=== PATIENT | female | born 1970 | race Hispanic/Latino ===

== ENCOUNTER 2020-05-03 09:20 | Emergency (ER) | payer BC ==
[~2020-05-03] VITALS: Ht 157.5 cm; Wt 122.5 kg
[2020-05-03] MEDS ORDERED: IBUPROFEN 600 MG TAB PO STA (09:43)
--- NOTE | 2020-05-03 09:43 | Emergency Department Note ---
History of Present Illnes History of Present Illness Chief Complaint: left achilles pain History of Present Illness This is a 50 year old female. was doing well prior to this. pt work up with this pain. 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: No Onset (how long ago): day(s) (2) Location: see above Quality: sharp Radiation: Reports non-radiation Severity: severe Onset quality: sudden Duration (how long): day(s) (2) Timing of current episode: constant Progression: worsening Chronicity: new Context: Denies recent illness, Denies recent surgery, Denies recent immobilization, Denies recent travel, Denies trauma/injury, Denies new medications, Denies hx of DVT/PE, Denies non-compliance w/ medications Relieving factors: rest Exacerbating factors: movement Associated symptoms: Reports denies other symptoms Treatments prior to arrival: none Past Medical/Family History Physician Review I have reviewed the patient's past medical and family history. Any updates have been documented here. Past Medical History Recent Fever: No Clinical Suspicion of Infectio: No New/Unexplained Change in Ment: No Past Medical History: Hypertension, Diabetes, MD, TIA, Cancer Other Medical History: KIDNEY CANCER-RIGHT Past Surgical History: Cholecysctectomy, Hysterectomy, Hernia Repair Other Surgery: RIGHT NEPHRECTOMY Social History Smoking Cessation: Never Smoker Alcohol Use: None Any Illegal Drug Use: No Family History Family history of heart diseas: No Other Any Pre-Existing Lines (PICC,: No Review of Systems Review of Systems Constitutional: Reports no symptoms EENTM: Reports no symptoms Cardiovascular: Reports no symptoms Respiratory: Reports no symptoms Gastrointestinal: Reports no symptoms Genitourinary: Reports no symptoms Musculoskeletal: Reports as per HPI Integumentary: Reports no symptoms Neurological: Reports no symptoms Psychological: Reports no symptoms Endocrine: Reports no symptoms Hematological/Lymphatic: Reports no symptoms Review of other systems: All other systems negative Physical Exam Related Data Triage Vital Signs Vital Signs Date Time Temp Pulse Resp B/P (MAP) Pulse Ox O2 Delivery O2 Flow Rate FiO2 05/03/20 09:34 98.8 93 16 205/83 98 Room Air Vital signs reviewed: Yes Physical Exam CONSTITUTIONAL Constitutional: Present well-developed, Present well-nourished HENT HENT: Present normocephalic, Present atraumatic, Present oropharynx clear/moist, Present nose normal HENT L/R: Present left ext ear normal, Present right ext ear normal EYES Eyes: Reports PERRL, Reports conjunctivae normal NECK Neck: Present ROM normal PULMONARY Pulmonary: Present effort normal, Present breath sounds normal CARDIOVASCULAR Cardiovascular: Present regular rhythm, Present heart sounds normal, Present capillary refill normal, Present normal rate GASTROINTESTINAL Abdominal: Present soft, Present nontender, Present bowel sounds normal GENITOURINARY Genitourinary: Present exam deferred SKIN Skin: Present warm, Present dry MUSCULOSKELETAL Musculoskeletal: Present tenderness (left achilles tenderness/ +swelling/ decrease farom/ +nvi) NEUROLOGICAL Neurological: Present alert, Present oriented x 3, Present no gross motor or sensory deficits PSYCHOLOGICAL Psychological: Present mood/affect normal, Present judgement normal Assessment & Plan Medical Decision Making MDM achilles tendinitis Assessment & Plan Final Impression: (1) Achilles tendinitis Depart Disposition: HOME, SELF-CARE Last Vital Signs Date Time Temp Pulse Resp B/P (MAP) Pulse Ox O2 Delivery O2 Flow Rate FiO2 05/03/20 09:34 98.8 93 16 205/83 98 Room Air Home Meds Active Scripts Cyclobenzaprine Hcl (FLEXERIL) 5 Mg Tablet, 10 MG PO Q8H PRN for MUSCLE SPASMS, #30 TAB take after ibuprofen to control pain if need be Prov:ROHINI HEARN 05/03/20 Ibuprofen (MOTRIN) 800 Mg Tab, 800 MG PO Q6H PRN for MODERATE PAIN (4-6), #40 TAB Prov:ROHINI HEARN 05/03/20 ROHINI HEARN May 03, 2020 09:43
[2020-05-03] MEDS ORDERED: HYDROCODONE/APAP 5MG-325MG TAB PO ONE (09:45)
[2020-05-03] MEDS ORDERED: CYCLOBENZAPRINE5 MG PO (09:55)
[2020-05-03] MEDS ORDERED: MOTRIN800 MG PO (09:55)
[2020-05-03] MEDS ORDERED: IBUPROFEN 400 MG TAB ONE (09:57)
[2020-05-03] MEDS ORDERED: HYDROCODONE/APAP 5MG-325MG TAB ONE (09:57)
== END 2020-05-03 10:03 | disposition home or self-care (01) ==
LOC: FSED 09:30
DX: M76.62 Achilles tendinitis, left leg (principal); I10 Essential (primary) hypertension; E11.9 Type 2 diabetes mellitus without complications; Z85.528 Personal history of other malignant neoplasm of kidney; I25.2 Old myocardial infarction; Z86.73 Personal history of transient ischemic attack (TIA), and cerebral infarction without residual deficits
CPT/HCPCS: 99283